=== PATIENT | female | born 1965 | race Caucasian/White ===

== ENCOUNTER 2019-07-03 15:10 | Emergency (ER) | payer MEDICAID, SELFPAY ==
[2019-07-03 15:16] VITALS: BP 119/74; PULSE 106; RESP 16; TEMP 36.4; O2SAT 96; BMI 26.9
--- NOTE | 2019-07-03 15:22 | XRR_ITS ---
PROCEDURE INFORMATION: Exam: XR Chest, 1 View Exam date and time: 07/03/2019 3:23 PM Age: 54 years old Clinical indication: Cough and shortness of breath; Additional info: Cough/congestion TECHNIQUE: Imaging protocol: XR of the chest Views: 1 view. COMPARISON: No relevant prior studies available. FINDINGS: Lungs: Mildly hyperaerated lungs consistent with deep inspiratory effort vs reactive airway disease vs mild COPD . Pleural space: Unremarkable. No pleural effusion. No pneumothorax. Heart/Mediastinum: Unremarkable. No cardiomegaly. Bones/joints: Unremarkable. XR/XR chest 1V portable [id number] IMPRESSION: Mildly hyperaerated lungs consistent with deep inspiratory effort vs reactive airway disease vs mild COPD .
[2019-07-03 15:59] VITALS: O2SAT 96
[2019-07-03 15:59] LABS: Basophils % 0.4 %; Eosinophils % 0.2 %; Hematocrit 44.4 % (37.0-47.0); Hemoglobin 14.6 g/dL (11.5-15.3); Lymphocytes # 1.4 10^3/uL (0.8-4.8); Lymphocytes % 14.8 %; Mean Corpuscular HGB Conc 32.9 g/dL (30.0-36.0); Mean Corpuscular Hemoglobin 31.9 pg (28.0-34.0); Mean Corpuscular Volume 96.9 fL (81-99); Mean Platelet Volume 9.5 fL (7.4-10.4); Monocytes # 0.7 10^3/uL (0.2-0.9); Monocytes % 7.2 %; Neutrophils # 7.2 10^3/uL (1.8-7.7); Neutrophils % 77.2 %; Nucleated Red Blood Cells % 0 %; Platelet Count 230 10^3/cmm (130-400); Red Blood Count 4.58 10^6/uL (4.1-5.3); Red Cell Distribution Width 13.7 % (12.1-15.1); White Blood Count 9.3 10^3/uL (4.0-10.0)
[2019-07-03 16:20] LABS: Troponin(5th) Baseline 6 ng/mL (0-10)
[2019-07-03 16:27] LABS: Rapid Strep A Test Negative (Negative)
--- NOTE | 2019-07-03 16:37 | W.ED.CHESTPA ---
HPI - Chest Pain General: Chief Complaint: Chest Pain Stated Complaint: cp Time Seen by Provider: 07/03/19 15:25 Source: patient Mode of arrival: ambulatory Limitations: no limitations History of Present Illness: HPI narrative: Prior OK several years ago. MD complaint: chest pain Pertinent past history: prior [place] Onset (ago): hour(s) (2) Timing of current episode: episodic Prior episodes: No Onset: after eating Pain location: left chest Pain radiation: none Severity: mild Quality: aching Relieving factors: nothing Exacerbating factors: nothing Associated symptoms: Reports no associated symptoms; Deny abdominal pain, dyspnea, fever(s), nausea or vomiting Treatment prior to arrival: none Review of Systems General: Reports: 10 or more systems reviewed and unremarkable except in HPI and below Const: Denies: fever, chills or body aches Eyes: Denies: change in vision or blurry vision ENMT: Reports: oral sores/lesions Card: Reports: chest pain Resp: Denies: shortness of breath, productive cough or non-productive cough GI: Denies: abdominal pain, nausea or vomiting : Denies: flank pain, difficulty urinating, painful urination, urinary frequency, urinary urgency or urinary hesitancy Musc: Denies: neck pain, back pain or extremity swelling Skin/Breast: Denies: rash, itching or redness Neuro: Denies: headache, numbness in extremities or weakness in extremities Endo: Denies: excessive urination, excessive thirst or tired all the time PFS ED PFSH: Social History Smoking and tobacco status: current every day smoker Physical Exam Const: COMMON NORMALS: no apparent distress, average body habitus, oriented x3, no limitations, healthy appearing, alert and well nourished HENMT: COMMON NORMALS: normocephalic, head/scalp atraumatic and moist oral mucous membranes HEAD & SCALP: normocephalic and atraumatic Neck/C-Spine: COMMON NORMALS: full ROM, supple, no meningeal signs, no JVD and no carotid bruits Chest: COMMONS NORMALS: inspection of chest normal and palpation of chest normal Resp: COMMON NORMALS: normal respiratory effort, no retractions, no use of accessory muscles, clear to auscultation bilaterally and percussion normal AUSCULTATION: clear to auscultation bilaterally PERCUSSION: percussion normal Cardio: COMMON NORMALS: no JVD, regular rate, regular rhythm, S1 normal heart sound, S2 normal heart sound, no gallops, no clicks, no murmurs, no rub and peripheral pulses 2+ throughout RATE: regular rate RHYTHM: regular rhythm HEART SOUNDS: S1 normal and S2 normal PERIPHERAL PULSES: pulses 2+ throughout GI: COMMON NORMALS: normal to inspection, nondistended, normoactive bowel sounds, soft to palpation, non-tender, no hepatosplenomegaly, no masses and no bruits PALPATION: Yes soft and Yes no hepatosplenomegaly : COMMON NORMALS: Yes no CVA tenderness BLADDER/KIDNEY EXAM: Yes no CVA tenderness Back/Pelvis: COMMON NORMALS: no CVA tenderness Extremity: COMMON NORMALS: normal to inspection, full ROM, normal capillary refill, no calf tenderness and no pedal edema Neuro: COMMON NORMALS: oriented x3 SENSORIUM/ORIENTATION: Yes alert MENINGEAL SIGNS: Yes no meningeal signs Skin: COMMON NORMALS: no rashes or lesions noted, no wounds, skin turgor normal, no jaundice, no petechiae and no mottling GENERAL SKIN EXAM: no rashes or lesions noted and turgor normal Course Vital Signs: Vital signs: Vital Signs Temperature 97.6 F 07/03/19 15:16 Pulse Rate 106 H 07/03/19 15:16 Respiratory Rate 16 07/03/19 15:16 Blood Pressure 119/74 07/03/19 15:16 Pulse Oximetry 96 07/03/19 15:59 MDM - Chest Pain MDM Narrative: Medical decision making narrative: Patient who presents to the emergency department with chest pain. During evaluation and while waiting on her test results the patient felt she could not wait any longer and so left AGAINST MEDICAL ADVICE. She understood the risks involved which include worsening of her condition and possible if she is having a myocardial infarction. Medical Records: Attestation: I reviewed the patient's medical records. Lab Data: Labs: Lab Results 07/03/19 07/03/19 07/03/19 Range/Units 15:47 15:47 15:47 WBC 9.3 (4.0-10.0) 10^3/ uL RBC 4.58 (4.1-5.3) 10^6/u L Hgb 14.6 (11.5-15.3) g/dL Hct 44.4 (37.0-47.0) % MCV 96.9 (81-99) fL MCH 31.9 (28.0-34.0) pg MCHC 32.9 (30.0-36.0) g/dL RDW 13.7 (12.1-15.1) % Plt Count 230 (130-400) 10^3/c mm MPV 9.5 (7.4-10.4) fL Neut % (Auto) 77.2 % Lymph % (Auto) 14.8 % Esmeralda % (Auto) 7.2 % Eos % (Auto) 0.2 % Baso % (Auto) 0.4 % Neut # (Auto) 7.2 (1.8-7.7) 10^3/u L Lymph # (Auto) 1.4 (0.8-4.8) 10^3/u L Esmeralda # (Auto) 0.7 (0.2-0.9) 10^3/u L Eos # (Auto) 0.0 (0.0-0.8) 10^3/u L Baso # (Auto) 0.0 (0.0-0.1) 10^3/u L Nucleated RBC % (a uto) 0 % Nucleated RBCs # 0.0 /100WBC Sodium 138 (136-145) mmol/L Potassium 3.9 (3.5-5.1) mmol/L Chloride 98 (98-107) mmol/L Carbon Dioxide 28 (22-29) mmol/L Anion Gap 15.9 (5-19) BUN 8 (6-20) mg/dL Creatinine 0.6 (0.5-0.9) mg/dL GFR Calculation 103.8 (90-130) mL/min Glucose 130 H (65-115) mg/dL Calculated Osmolal ity 284 L (285-295) mOsm/k g Calcium 10.2 (8.5-10.5) mg/dL Total Bilirubin 0.6 (0.15-1.2) mg/dL AST 37 H (0-32) U/L ALT 13 (0-33) U/L Alkaline Phosphata se 76 (35-105) IU/L Troponin T Baselin e 6 (0-10) ng/mL Total Protein 7.3 (6.6-8.7) g/dL Albumin 4.8 (3.5-5.2) g/dL Globulin 2.5 (1.3-4.6) g/dL Influenza Type A A g (Negative) Influenza Type B A g (Negative) Group A Strep Rapi d (Negative) 07/03/19 07/03/19 Range/Units 15:53 15:53 WBC (4.0-10.0) 10^3/ uL RBC (4.1-5.3) 10^6/u L Hgb (11.5-15.3) g/dL Hct (37.0-47.0) % MCV (81-99) fL MCH (28.0-34.0) pg MCHC (30.0-36.0) g/dL RDW (12.1-15.1) % Plt Count (130-400) 10^3/c mm MPV (7.4-10.4) fL Neut % (Auto) % Lymph % (Auto) % Esmeralda % (Auto) % Eos % (Auto) % Baso % (Auto) % Neut # (Auto) (1.8-7.7) 10^3/u L Lymph # (Auto) (0.8-4.8) 10^3/u L Esmeralda # (Auto) (0.2-0.9) 10^3/u L Eos # (Auto) (0.0-0.8) 10^3/u L Baso # (Auto) (0.0-0.1) 10^3/u L Nucleated RBC % (a uto) % Nucleated RBCs # /100WBC Sodium (136-145) mmol/L Potassium (3.5-5.1) mmol/L Chloride (98-107) mmol/L Carbon Dioxide (22-29) mmol/L Anion Gap (5-19) BUN (6-20) mg/dL Creatinine (0.5-0.9) mg/dL GFR Calculation (90-130) mL/min Glucose (65-115) mg/dL Calculated Osmolal ity (285-295) mOsm/k g Calcium (8.5-10.5) mg/dL Total Bilirubin (0.15-1.2) mg/dL AST (0-32) U/L ALT (0-33) U/L Alkaline Phosphata se (35-105) IU/L Troponin T Baselin e (0-10) ng/mL Total Protein (6.6-8.7) g/dL Albumin (3.5-5.2) g/dL Globulin (1.3-4.6) g/dL Influenza Type A A g Negative (Negative) Influenza Type B A g Negative (Negative) Group A Strep Rapi d Negative (Negative) Imaging Data^: CXR: Radiologist's impression: [address] [address] XRay Report Signed Patient: Ledya Mccurdy #: [id number] : 1965Acct#:[id number] Age/Sex: 54 / FADM Date: 07/03/19 [facility] Attending Dr: Ordering Provider/Ordering MD: Orly Cortez Date of Service: 07/03/19 Procedure(s): XR chest 1V portable [id number] Accession Number(s): [id number] Report Number: [id number] PROCEDURE INFORMATION: Exam: XR Chest, 1 View Exam date and time: 07/03/2019 3:23 PM Age: 54 years old Clinical indication: Cough and shortness of breath; Additional info: Cough/congestion TECHNIQUE: Imaging protocol: XR of the chest Views: 1 view. COMPARISON: No relevant prior studies available. FINDINGS: Lungs: Mildly hyperaerated lungs consistent with deep inspiratory effort vs reactive airway disease vs mild COPD . Pleural space: Unremarkable. No pleural effusion. No pneumothorax. Heart/Mediastinum: Unremarkable. No cardiomegaly. Bones/joints: Unremarkable. XR/XR chest 1V portable [id number] IMPRESSION: Mildly hyperaerated lungs consistent with deep inspiratory effort vs reactive airway disease vs mild COPD . Dictated By:Rogelio Rabago MD Signed By:Rogelio Rabago MDSigned Date/Time:07/03/191605 DD/ 1604 EKG Data^: EKG 1: Attestation: I personally reviewed and interpreted this EKG as follows: EKG interpretation date: 07/03/19 EKG interpretation time: 15:31 Prior EKG tracings: not available for review Interpretation: Sinus rhythm HR [address] changes Normal axis Discharge Plan Discharge Patient Disposition: Left Against Medical Advice Clinical Impression: Chest pain Qualifiers: Chest pain type: unspecified Qualified Code(s): R07.9 - Chest pain, unspecified Condition: Stable Coding Level of Care Code ED Donor Recruiter for g Fwd Exam Comprehensive
[2019-07-03 16:38] LABS: Influenza A by IFA Negative (Negative); Influenza B by IFA Negative (Negative)
[2019-07-03 16:49] LABS: Alanine Aminotransferase 13 U/L (0-33); Albumin Level 4.8 g/dL (3.5-5.2); Alkaline Phosphatase 76 IU/L (35-105); Anion Gap 15.9 (5-19); Aspartate Amino Transferase 37 U/L (0-32); Blood Urea Nitrogen 8 mg/dL (6-20); Calcium 10.2 mg/dL (8.5-10.5); Carbon Dioxide 28 mmol/L (22-29); Chloride 98 mmol/L (98-107); Globulin 2.5 g/dL (1.3-4.6); Glomerular Filtration Rate 103.8 mL/min (90-130); Glucose 130 mg/dL (65-115); Osmolality Calculated 284 mOsm/kg (285-295); Potassium 3.9 mmol/L (3.5-5.1); Sodium 138 mmol/L (136-145); Total Bilirubin 0.6 mg/dL (0.15-1.2); Total Protein 7.3 g/dL (6.6-8.7)
== END 2019-07-03 17:04 | disposition left against medical advice (07) ==
PROVIDERS: Physician Assistant; Emergency Provider Family Medicine
DX: R07.9 Chest pain, unspecified (principal); I25.2 Old myocardial infarction; F17.200 Nicotine dependence, unspecified, uncomplicated; Z53.29 Procedure and treatment not carried out because of patient's decision for other reasons
CPT/HCPCS: 12345; 71045; 80053; 84484; 85025; 87081; 87804; 87880; 99283; A9270

== ENCOUNTER → 2020-12-13 10:33 | Outpatient (BNVA) | payer MEDICAID, SELFPAY | PROVIDERS: Visit Provider Registered Nurse Neonatal Intensive Care | DX: R10.9 Unspecified abdominal pain (principal) | CPT/HCPCS: 81000 ==

== ENCOUNTER 2022-04-29 12:52 | Outpatient (CLI) | payer MEDICAID, SELFPAY ==
--- NOTE | 2022-04-29 13:14 | MM_ITS ---
WS: [id number] LEFT 3D TOMOSYNTHESIS DIGITAL MAMMOGRAPHY WITH CAD CLINICAL INFORMATION: ABNORMAL MAMMO HISTORY: Outside examination request additional views COMPARISON: Outside examination February 22, 2022 TECHNIQUE: 3 views of the left breast were obtained. FINDINGS: Scattered fibroglandular densities of the left breast. Spot magnification views of the previously loco cribed calcifications on the outside mammogram near the 11:00 position. Again seen are tiny clustered calcifications near the 11:00 position. These are not well seen on the ML view, some of which may re present milk of calcium. These are indeterminate and Recommend 6 month follow-up LEFT breast diagnost ic mammography with spot magnification views to assess for change. MM/[place] [id number] IMPRESSION: BI-RADS: 3-Probably Benign FOLLOW UP: 6 Month Follow-up Recommend 6 month follow-up LEFT breast diagnostic mammography with spot magnif ication views the 11:00 calcifications.
== END 2022-04-29 12:53 | disposition home or self-care (01) ==
LOC: RAD 12:58
PROVIDERS: Visit Provider Registered Nurse
DX: R92.8 Other abnormal and inconclusive findings on diagnostic imaging of breast (principal); R92.1 Mammographic calcification found on diagnostic imaging of breast
CPT/HCPCS: 77061; G0279

== ENCOUNTER → 2022-05-22 14:06 | Outpatient (BNVA) | payer MEDICAID, SELFPAY | PROVIDERS: Visit Provider Otolaryngology | DX: B36.9 Superficial mycosis, unspecified (principal); H62.41 Otitis externa in other diseases classified elsewhere, right ear; J32.9 Chronic sinusitis, unspecified; M26.629 Arthralgia of temporomandibular joint, unspecified side; F17.210 Nicotine dependence, cigarettes, uncomplicated | CPT/HCPCS: 69210; 99203 ==

== ENCOUNTER → 2022-05-29 10:05 | Outpatient (BNVA) | payer MEDICAID, SELFPAY | PROVIDERS: Visit Provider Otolaryngology | DX: B36.9 Superficial mycosis, unspecified (principal); H62.41 Otitis externa in other diseases classified elsewhere, right ear; J34.2 Deviated nasal septum; H72.01 Central perforation of tympanic membrane, right ear | CPT/HCPCS: 99213 ==

== ENCOUNTER → 2022-07-29 11:30 | Outpatient (BNVA) | payer MEDICAID, SELFPAY | PROVIDERS: Visit Provider Otolaryngology | DX: H72.01 Central perforation of tympanic membrane, right ear (principal); J34.2 Deviated nasal septum | CPT/HCPCS: 99213 ==

== ENCOUNTER → 2022-09-02 11:48 | Outpatient (BNVA) | payer MEDICAID, SELFPAY | PROVIDERS: Visit Provider Otolaryngology | DX: J06.9 Acute upper respiratory infection, unspecified (principal); M26.609 Unspecified temporomandibular joint disorder, unspecified side | CPT/HCPCS: 99213 ==

== ENCOUNTER 2022-10-28 09:55 | Outpatient (CLI) | payer MEDICAID, SELFPAY ==
--- NOTE | 2022-10-28 10:26 | MM_ITS ---
WS: [id number] LEFT 3D TOMOSYNTHESIS DIGITAL MAMMOGRAPHY WITH CAD CLINICAL INFORMATION: 6MFU CALCS HISTORY: Six-month follow-up calcifications. LEFT breast pain and soreness. COMPARISON: April 29, 2022, February 22, 2022 TECHNIQUE: 3 views of the left breast were obtained. FINDINGS: The left breast is composed of heterogeneous fibroglandular density tissue, which can limit the detec tion of small underlying mass lesions. Spot magnification views of the previously described calcifications in the 11:00 position. Stable fabio nt amorphous and clustered calcifications in this area not significantly changed compared to previous . Recommend additional six-month follow-up with spot magnification views to confirm stability. No oth er significant changes compared to previous. MM/[place] [id number] IMPRESSION: BI-RADS: 3-Probably Benign FOLLOW UP: 6 Month Follow-up Recommend 6 month follow-up LEFT breast diagnostic mammography with spot magnif ication views of the calcifications.
== END 2022-10-28 09:56 | disposition home or self-care (01) ==
PROVIDERS: Visit Provider Registered Nurse
DX: R93.89 Abnormal findings on diagnostic imaging of other specified body structures (principal); R92.1 Mammographic calcification found on diagnostic imaging of breast; N64.4 Mastodynia
CPT/HCPCS: 77061; G0279

== ENCOUNTER 2023-05-26 12:52 | Outpatient (CLI) | payer MEDICAID, SELFPAY ==
--- NOTE | 2023-05-26 13:16 | MM_ITS ---
WS: [email or web address] BILATERAL 3D TOMOSYNTHESIS DIGITAL DIAGNOSTIC MAMMOGRAPHY WITH CAD CLINICAL INFORMATION: 6 MONTH FOLLOW UP/ABN L BREAST HISTORY: 6-month follow-up calcifications. COMPARISON: 02/22/2022 TECHNIQUE: Bilateral CC, MLO, and ML views. FINDINGS: The breasts are composed of heterogeneous fibroglandular density, which can limit the detection of sm all underlying mass lesions. Spot magnification views of the previously described calcifications in the 11 o'clock position LEFT b reast are stable in appearance. These have a faint amorphous appearance and are stable compared to pr evious. These are stable since 04/29/2022. New clustered punctate calcifications posterior depth upper outer RIGHT breast. Spot magnification vi ews demonstrate clustered heterogeneous punctate calcifications. Recommend further evaluation with st ereotactic guided biopsy. IMPRESSION: MM/[place] [id number] BI-RADS: 4-Suspicious Finding-Biopsy Should Be Considered FOLLOW UP: Stereotactic Biopsy Recommended Recommend stereotactic guided biopsy of the new heterogeneous RIGHT breast calc ifications. LEFT breast calcifications are stable in appearance. Recommend additional 6-mon th follow-up of the LEFT breast calcifications.
== END 2023-05-26 12:53 | disposition home or self-care (01) ==
LOC: RAD 12:52
PROVIDERS: Visit Provider Nurse Practitioner Family
DX: R92.1 Mammographic calcification found on diagnostic imaging of breast (principal); R92.323 Mammographic fibroglandular density, bilateral breasts; R92.8 Other abnormal and inconclusive findings on diagnostic imaging of breast
CPT/HCPCS: 77062; G0279

== ENCOUNTER 2023-06-17 11:30 | Outpatient (CLI) | payer MEDICAID, SELFPAY ==
--- NOTE | 2023-06-17 13:07 | MM_ITS ---
WS: [id number] STEREOTACTIC RIGHT BREAST BIOPSY WITH VACUUM ASSISTANCE HISTORY: ABNORMAL MAMMO CALCS COMPARISON: 05/26/2023, 02/22/2022 Procedure, risks and complications were explained to the patient. Medications and prior radiographs a re reviewed. RIGHT breast calcifications are located. Calcifications localize to the upper outer quadrant. Calcifi cations are targeted in the craniocaudal projection. The skin is cleansed with ChloraPrep and anesthe tized with 1% buffered lidocaine. Deeper soft tissues anesthetized with a combination of lidocaine an d epinephrine. Small dermatome is made. Needle advanced into the RIGHT breast. Stereotactic imaging r eveals appropriate positioning adjacent calcifications. Multiple vacuum-assisted core biopsies are ob tained. No complications were encountered. Post biopsy specimen radiograph reveals numerous calcifications. Biopsy clip is placed in the cavity. Post imaging reveals good placement of the clip. No migration. Pressures held for approximately 15 minutes. No bleeding. Dressing applied. Patient discharged with n o complications. There is no bleeding. With any questions or complications patient is to return. IMPRESSION: 1. Uncomplicated RIGHT breast stereotactic biopsy. 2. Specimen contains numerous calcifications. MM/[place] [id number] Pathology: Ductal carcinoma in situ, comedo type, intermediate grade. 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 No invasive malignancy. Breast prognostic p rofile is ordered and pending. This will be reported separately. RECOMMENDATION: Follow-up with primary care physician, oncology and breast surg tiny.
--- NOTE | 2023-06-17 13:08 | MM_ITS ---
WS: [id number] STEREOTACTIC RIGHT BREAST BIOPSY WITH VACUUM ASSISTANCE HISTORY: ABNORMAL MAMMO CALCS COMPARISON: 05/26/2023, 02/22/2022 Procedure, risks and complications were explained to the patient. Medications and prior radiographs a re reviewed. RIGHT breast calcifications are located. Calcifications localize to the upper outer quadrant. Calcifi cations are targeted in the craniocaudal projection. The skin is cleansed with ChloraPrep and anesthe tized with 1% buffered lidocaine. Deeper soft tissues anesthetized with a combination of lidocaine an d epinephrine. Small dermatome is made. Needle advanced into the RIGHT breast. Stereotactic imaging r eveals appropriate positioning adjacent calcifications. Multiple vacuum-assisted core biopsies are ob tained. No complications were encountered. Post biopsy specimen radiograph reveals numerous calcifications. Biopsy clip is placed in the cavity. Post imaging reveals good placement of the clip. No migration. Pressures held for approximately 15 minutes. No bleeding. Dressing applied. Patient discharged with n o complications. There is no bleeding. With any questions or complications patient is to return. IMPRESSION: 1. Uncomplicated RIGHT breast stereotactic biopsy. 2. Specimen contains numerous calcifications. MM/[place] [id number] Pathology: Ductal carcinoma in situ, comedo type, intermediate grade. 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 No invasive malignancy. Breast prognostic p rofile is ordered and pending. This will be reported separately. RECOMMENDATION: Follow-up with primary care physician, oncology and breast surg tiny.
--- NOTE | 2023-06-17 13:09 | MM_ITS ---
WS: [email or web address] STEREOTACTIC RIGHT BREAST BIOPSY WITH VACUUM ASSISTANCE HISTORY: ABNORMAL MAMMO CALCS COMPARISON: 05/26/2023, 02/22/2022 Procedure, risks and complications were explained to the patient. Medications and prior radiographs a re reviewed. RIGHT breast calcifications are located. Calcifications localize to the upper outer quadrant. Calcifi cations are targeted in the craniocaudal projection. The skin is cleansed with ChloraPrep and anesthe tized with 1% buffered lidocaine. Deeper soft tissues anesthetized with a combination of lidocaine an d epinephrine. Small dermatome is made. Needle advanced into the RIGHT breast. Stereotactic imaging r eveals appropriate positioning adjacent calcifications. Multiple vacuum-assisted core biopsies are ob tained. No complications were encountered. Post biopsy specimen radiograph reveals numerous calcifications. Biopsy clip is placed in the cavity. Post imaging reveals good placement of the clip. No migration. Pressures held for approximately 15 minutes. No bleeding. Dressing applied. Patient discharged with n o complications. There is no bleeding. With any questions or complications patient is to return. IMPRESSION: 1. Uncomplicated RIGHT breast stereotactic biopsy. 2. Specimen contains numerous calcifications. MM/MM surgical specimen RT Pathology: Ductal carcinoma in situ, comedo type, intermediate grade. 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 No invasive malignancy. Breast prognostic p rofile is ordered and pending. This will be reported separately. RECOMMENDATION: Follow-up with primary care physician, oncology and breast surg tiny.
[2023-07-03 13:55] LABS: Breast Profile ER,PR,HER2,Ki-6 See Report
== END 2023-06-17 11:31 | disposition home or self-care (01) ==
LOC: RAD 11:30
PROVIDERS: Visit Provider Nurse Practitioner Family
DX: R92.1 Mammographic calcification found on diagnostic imaging of breast (principal)
CPT/HCPCS: 19081; 77065; 88305; 88361; 88374

== ENCOUNTER 2023-07-03 07:26 | Oncology outpatient (recurring) (ONCR) | payer MEDICAID, SELFPAY ==
[2023-07-03 09:15] LABS: Basophils # 0.1 10^3/uL (0.0-0.1); Basophils % 0.6 %; Eosinophils # 0.1 10^3/uL (0.0-0.8); Eosinophils % 1.4 %; Hematocrit 38.5 % (36-47); Lymphocytes % 22.9 %; Mean Corpuscular HGB Conc 33.5 g/dL (30-55); Mean Corpuscular Hemoglobin 32.2 pg (27-33); Mean Platelet Volume 8.9 fL (7.4-10.4); Monocytes # 0.6 10^3/uL (0.2-0.9); Monocytes % 7.2 %; Neutrophils # 5.91 10^3/uL (1.8-7.7); Neutrophils % 67.7 %; Nucleated Red Blood Cells % 0 %; Platelet Count 231 10^3/cmm (157-399); Red Blood Count 4.01 10^6/uL (3.85-5.65); Red Cell Distribution Width 12.2 % (12.1-15.1); White Blood Count 8.73 10^3/uL (3.29-11.43)
[2023-07-03 09:35] LABS: Alanine Aminotransferase 13 U/L (0-33); Albumin Level 4.2 g/dL (3.5-5.2); Alkaline Phosphatase 79 U/L (35-105); Aspartate Amino Transferase 20 U/L (0-32); Blood Urea Nitrogen 11 mg/dL (6-20); Carbon Dioxide 26 mmol/L (22-29); Chloride 100 mmol/L (98-107); Creatinine Clr Calc Pharmacy 97.4655; Globulin 2.6 g/dL (1.3-4.6); Glomerular Filtration Rate 102.3 mL/min (90-130); Glucose 93 mg/dL (65-115); Osmolality Calculated 281 mOsm/kg (285-295); Sodium 136 mmol/L (136-145); Total Bilirubin 0.3 mg/dL (0.15-1.2); Total Protein 6.8 g/dL (6.6-8.7)
[2023-07-03 10:06] LABS: Hepatitis A Antibody IgM Non-Reactive (Nonreactive); Hepatitis B Core AB, Total Non-Reactive (Nonreactive); Hepatitis B Surface AB 46.1 (11.5-1000); Hepatitis B Surface Antigen Non-Reactive (Nonreactive); Hepatitis C Virus Antibody Non-Reactive (Nonreactive)
== END 2023-07-22 23:59 | disposition home or self-care (01) ==
PROVIDERS: Visit Provider Internal Medicine
DX: D05.11 Intraductal carcinoma in situ of right breast (principal); Z79.899 Other long term (current) drug therapy
CPT/HCPCS: 36415; 80053; 85025; 86705; 86706; 86709; 86803; 87340; 99205

== ENCOUNTER 2023-09-11 12:00 | Oncology outpatient (recurring) (ONCR) | payer MEDICAID, SELFPAY ==
[2023-09-11 12:26] LABS: Basophils # 0.1 10^3/uL (0.0-0.1); Basophils % 0.9 %; Eosinophils # 0.3 10^3/uL (0.0-0.8); Eosinophils % 4.1 %; Hematocrit 37.3 % (36-47); Lymphocytes # 1.9 10^3/uL (0.8-4.8); Lymphocytes % 28.2 %; Mean Corpuscular HGB Conc 34.3 g/dL (30-55); Mean Corpuscular Hemoglobin 32.2 pg (27-33); Mean Platelet Volume 8.9 fL (7.4-10.4); Monocytes # 0.5 10^3/uL (0.2-0.9); Monocytes % 7.6 %; Neutrophils # 3.87 10^3/uL (1.8-7.7); Nucleated Red Blood Cells % 0 %; Platelet Count 280 10^3/cmm (157-399); Red Blood Count 3.97 10^6/uL (3.85-5.65); Red Cell Distribution Width 11.9 % (12.1-15.1); White Blood Count 6.56 10^3/uL (3.29-11.43)
[2023-09-11 12:47] LABS: Alanine Aminotransferase 8 U/L (0-33); Albumin Level 4.1 g/dL (3.5-5.2); Alkaline Phosphatase 84 U/L (35-105); Anion Gap 14.1 (5-19); Aspartate Amino Transferase 23 U/L (0-32); Blood Urea Nitrogen 8 mg/dL (6-20); Calcium 8.9 mg/dL (8.5-10.5); Carbon Dioxide 26 mmol/L (22-29); Chloride 101 mmol/L (98-107); Creatinine Clr Calc Pharmacy 81.4195; Globulin 2.5 g/dL (1.3-4.6); Glomerular Filtration Rate 85.6 mL/min (90-130); Glucose 95 mg/dL (65-115); Osmolality Calculated 282 mOsm/kg (285-295); Potassium 4.1 mmol/L (3.5-5.1); Sodium 137 mmol/L (136-145); Total Bilirubin 0.2 mg/dL (0.15-1.2); Total Protein 6.6 g/dL (6.6-8.7)
== END 2023-09-21 23:59 | disposition home or self-care (01) ==
PROVIDERS: Visit Provider Internal Medicine
DX: D05.11 Intraductal carcinoma in situ of right breast (principal); Z79.899 Other long term (current) drug therapy; Z53.9 Procedure and treatment not carried out, unspecified reason
CPT/HCPCS: 36415; 80053; 85025; 99213

== ENCOUNTER 2023-12-01 10:29 | Oncology outpatient (recurring) (ONCR) | payer MEDICAID, SELFPAY ==
[2023-12-01 11:15] LABS: Alanine Aminotransferase 16 U/L (0-33); Albumin Level 3.7 g/dL (3.5-5.2); Alkaline Phosphatase 92 U/L (35-105); Anion Gap 13.6 (5-19); Aspartate Amino Transferase 24 U/L (0-32); Blood Urea Nitrogen 11 mg/dL (6-20); Calcium 8.7 mg/dL (8.5-10.5); Carbon Dioxide 28 mmol/L (22-29); Chloride 98 mmol/L (98-107); Globulin 2.6 g/dL (1.3-4.6); Glomerular Filtration Rate 102.3 mL/min (90-130); Glucose 101 mg/dL (65-115); Osmolality Calculated 280 mOsm/kg (285-295); Potassium 4.6 mmol/L (3.5-5.1); Sodium 135 mmol/L (136-145); Total Bilirubin 0.2 mg/dL (0.15-1.2); Total Protein 6.3 g/dL (6.6-8.7)
[2023-12-01 11:53] LABS: Basophils # 0.1 10^3/uL (0.0-0.1); Basophils % 0.8 %; Eosinophils # 0.3 10^3/uL (0.0-0.8); Eosinophils % 2.8 %; Hematocrit 36.8 % (36-47); Lymphocytes % 22.2 %; Mean Corpuscular HGB Conc 33.4 g/dL (30-55); Mean Corpuscular Hemoglobin 31.2 pg (27-33); Mean Corpuscular Volume 93.4 fl (85-98); Mean Platelet Volume 9.2 fL (7.4-10.4); Monocytes # 0.6 10^3/uL (0.2-0.9); Monocytes % 7.2 %; Neutrophils # 5.95 10^3/uL (1.8-7.7); Neutrophils % 66.7 %; Nucleated Red Blood Cells % 0 %; Platelet Count 293 10^3/cmm (157-399); Red Blood Count 3.94 10^6/uL (3.85-5.65); Red Cell Distribution Width 12.8 % (12.1-15.1); White Blood Count 8.92 10^3/uL (3.29-11.43)
== END 2023-12-22 23:59 | disposition home or self-care (01) ==
PROVIDERS: Internal Medicine Medical Oncology; Visit Provider Internal Medicine
DX: D05.11 Intraductal carcinoma in situ of right breast (principal); Z79.899 Other long term (current) drug therapy
CPT/HCPCS: 36415; 80053; 82670; 83001; 83002; 85025; 99205

== ENCOUNTER 2024-06-14 12:53 | Oncology outpatient (recurring) (ONCR) | payer MEDICAID, SELFPAY | END 2024-06-21 23:59 | disposition home or self-care (01) | PROVIDERS: Visit Provider Internal Medicine Medical Oncology | DX: Z08 Encounter for follow-up examination after completed treatment for malignant neoplasm (principal); Z85.3 Personal history of malignant neoplasm of breast; F17.210 Nicotine dependence, cigarettes, uncomplicated; Z90.13 Acquired absence of bilateral breasts and nipples | CPT/HCPCS: 80061; 83036; 99214 ==

== ENCOUNTER 2024-08-04 11:19 | Inpatient (IN) | payer MEDICAID, SELFPAY ==
[2024-06-15 13:22] VITALS: BP 126/82; BMI 24.2
[2024-08-04 11:21] VITALS: TEMP 36.6
[2024-08-04 12:10] LABS: Basophils % 0.7 %; Eosinophils # 0.2 10^3/uL (0.0-0.8); Hematocrit 40.4 % (36-47); Lymphocytes # 1.7 10^3/uL (0.8-4.8); Lymphocytes % 29.2 %; Mean Corpuscular HGB Conc 33.7 g/dL (30-55); Mean Corpuscular Hemoglobin 31.8 pg (27-33); Mean Corpuscular Volume 94.4 fl (85-98); Mean Platelet Volume 8.9 fL (7.4-10.4); Monocytes # 0.4 10^3/uL (0.2-0.9); Monocytes % 7.5 %; Neutrophils # 3.42 10^3/uL (1.8-7.7); Neutrophils % 59.4 %; Nucleated Red Blood Cells % 0 %; Platelet Count 244 10^3/cmm (157-399); Red Blood Count 4.28 10^6/uL (3.85-5.65); Red Cell Distribution Width 12.3 % (12.1-15.1); White Blood Count 5.75 10^3/uL (3.29-11.43)
[2024-08-04 12:32] LABS: Alanine Aminotransferase 8 U/L (0-33); Albumin Level 4.1 g/dL (3.5-5.2); Alkaline Phosphatase 97 U/L (35-105); Anion Gap 13.4 (5-19); Aspartate Amino Transferase 15 U/L (0-32); Blood Urea Nitrogen 12 mg/dL (8-23); Calcium 9.3 mg/dL (8.5-10.5); Carbon Dioxide 27 mmol/L (22-29); Chloride 102 mmol/L (98-107); Creatinine Clr Calc Pharmacy 72.0762; Globulin 2.9 g/dL (1.3-4.6); Glomerular Filtration Rate 73.2 mL/min (90-130); Glucose 93 mg/dL (65-115); Osmolality Calculated 285 mOsm/kg (285-295); Potassium 4.4 mmol/L (3.5-5.1); Sodium 138 mmol/L (136-145); Thyroid Stimulating Hormone 1.61 uIU/mL (0.27-4.20); Total Bilirubin 0.2 mg/dL (0.15-1.2)
[2024-08-04 12:48] LABS: Acetaminophen < 5.0 ug/mL (10-30); Salicylate < 0.3 mg/dL (3-10)
[2024-08-04] MEDS: nicotine 21 mg Patch 1 PATCH TRANSDERMA (12:52)
--- NOTE | 2024-08-04 12:55 | PC.PHAR ---
Pt states she is late filling some of her medications due to her doctor retiring.
--- NOTE | 2024-08-04 13:12 | PC.NURSE ---
96 hour hold rights read to patient in ER 8. Patient wanted to know who put her in the ER and demanded to talk to the ammunition assembly i laborer. Product Marketing Consultant informed patient that it was not possible to speak to the ammunition assembly i laborer, but she could speak to the doctor if she would like. Patient asked manual writer to read her exactly what was written on that paper as she could not read it without glasses and manual writer told patient she just read the entire thing. Patient verbalized understanding, folded up paper and wanted it put with her personal belongings.
--- NOTE | 2024-08-04 14:03 | W.ED.PSYCHS ---
HPI - Psych General: Chief Complaint: Psychiatric Symptoms Stated Complaint: SI Time Seen by Provider: 08/04/24 11:22 History of Present Illness: This patient is a 59-year-old white female who was brought in by police with a judges order, 96-hour hold. There was an affidavit written by a counselor who had a discussion with the patient on Friday, August 02. Per the affidavit the patient made a homicidal statement regarding her ex-. Patient states today the police just showed up at her house and brought her in. She was not sure why. She states she is not homicidal or suicidal. She states she has never tried to hurt herself or anyone else. She denies chronic medical problems however she states she does take sertraline. Related Data Home Medications ?Medication ?Instructions ?Recorded ?Confirmed loratadine 10 mg tablet 10 mg PO DAILY 12/13/20 08/04/24 gabapentin 300 mg capsule 300 mg PO QID 07/03/23 08/04/24 rizatriptan 10 mg tablet See Rx Instructions .Route .COMPLEX 07/03/23 08/04/24 albuterol sulfate 90 mcg/actuation 2 puff inhalation Q6H PRN 08/04/24 08/04/24 aerosol inhaler (Ventolin HFA) Shortness Of Breath ferrous sulfate 325 mg (65 mg 325 mg PO DAILY 08/04/24 08/04/24 iron) tablet (FeroSul) fluticasone 100 mcg-salmeterol 50 1 inh inhalation BID 08/04/24 08/04/24 mcg/dose blistr powdr for inhalation (Advair Diskus) thyroid (pork) 60 mg tablet (GLASSWARE FINISHER 60 mg PO DAILY 08/04/24 08/04/24 Thyroid) Previous Rx's ?Medication ?Instructions ?Recorded fluticasone propionate 50 2 spray intranasal DAILY PRN nasal 05/22/22 mcg/actuation nasal congestion 6 months #16 grams spray,suspension Allergies Allergy/AdvReac Type Severity Reaction Status Date / Time morphine Allergy Unknown ADR-Halluci Verified 06/14/24 12:59 nating Sulfa (Sulfonamide Allergy Unknown ALGY-Difficulty Verified 06/14/24 12:59 Antibiotics) Breathing rifampin Allergy ADR-Vomitin Verified 06/14/24 12:59 g sulfamethoxazole (From Allergy ALGY-Swell Verified 06/14/24 12:59 Bactrim) Lip/Tongue/Throat trimethoprim (From Bactrim) Allergy ALGY-Swell Verified 06/14/24 12:59 Lip/Tongue/Throat sulfa shampoo Allergy Unknown Unknown Uncoded 06/14/24 12:59 Review of Systems General: Reports: 10 or more systems reviewed and unremarkable except in HPI and below PFSH ED PFSH: Medical History (Updated 08/04/24 @ 14:01 by Farzad Banuelos MD) Psychiatric care Allergic rhinitis Depression Iron deficiency B12 deficiency Hypothyroidism Fibromyalgia Ductal carcinoma in situ of right breast Surgical History History of endometrial ablation Ablation procedure for cervical or endometrial cancer History of bilateral mastectomy (11/10/23) Bilateral mastectomy with right axillary sentinel lymph node biopsy and with immediate reconstruction History of spinal surgery Neck fusion with subsequent removal of hardware History of tubal ligation Family History Family/Other Breast cancer Social History Smoking and tobacco/nicotine status: current every day tobacco/nicotine user (1/2 PPD) cigarettes Packs smoked per day: 0.5 Years cigarettes smoked: 18 Quit status (tobacco/nicotine): considering quitting Alcohol intake: current Alcohol intake frequency: 0-2 Drinks per Day Substance/Drug Use: current Adopted: No Caregiver/support person: No Lives independently: Yes Housing: Apartment Marital status: Number of children: 5 Number of grandchildren: 4 Highest education level completed: Some College, No Degree service: No Current occupational status: disabled Pets and animals: Yes Pets & animals: dog(s) Leisure activites: other Leisure activities details: river Sexually active: Yes Do you think of yourself as: Straight/Heterosexual Current gender identity: Female Ratna/Taoist: None Special ratna needs: No Agree to transfusion: Yes Physical Exam Const: COMMON NORMALS: no acute distress, patient oriented x3 and no limitations GENERAL APPEARANCE: cooperative and comfortable HENMT: COMMON NORMALS: normocephalic, atraumatic, Normal nasal mucous membranes and turbinates present, moist oral mucous membranes and oropharynx normal HEAD & SCALP: normal to inspection, normocephalic and atraumatic FACE & SINUS: normal facial exam NOSE: Normal nasal mucous membranes and turbinates present Eye: COMMON NORMALS: Equal, round and reactive pupils present, EOMs intact bilaterally and conjunctivae normal GENERAL EYE: appearance normal, both eyes and all related structures CONJUNCTIVA: Yes conjunctivae normal PUPIL: Yes Equal, round and reactive pupils present Neck/C-Spine: COMMON NORMALS: supple and no JVD Chest: COMMONS NORMALS: normal inspection of the chest Resp: COMMON NORMALS: normal respiratory effort and clear to auscultation bilaterally AUSCULTATION: clear to auscultation bilaterally Cardio: COMMON NORMALS: no JVD, regular rate, regular rhythm, No gallops present (Cardio), No murmurs present (Cardio) and No rub (Cardio) RATE: regular rate RHYTHM: regular rhythm GI: COMMON NORMALS: Normal to inspection, nondistended, normoactive bowel sounds present, Soft to palpation and non-tender AUSCULTATION: Yes normoactive bowel sounds PALPATION: Yes Soft to palpation : COMMON NORMALS: Yes no CVA tenderness BLADDER/KIDNEY EXAM: Yes no CVA tenderness Back/Pelvis: COMMON NORMALS: no CVA tenderness and thoracic and lumbar spine normal to inspection Extremity: COMMON NORMALS: normal to inspection Neuro: COMMON NORMALS: patient oriented x3 and CN's II-XII intact bilaterally Psych: COMMON NORMALS: mental status grossly normal, Normal thought process present and cooperative THOUGHT PROCESS: Normal thought process present Skin: COMMON NORMALS: no rashes or lesions noted, turgor normal and no jaundice GENERAL SKIN EXAM: no rashes or lesions noted and turgor normal Course Vital Signs: Vital signs: Vital Signs Temperature 97.9 F 08/04/24 11:21 MDM - Psych Medical Decision Making CBC and CMP were normal. TSH 1.6. Talk screen was negative. Urinalysis and urine drug screen is pending. I discussed this case with Dr. Segundo, psychiatrist. He did accept the patient to the Neuropsych Unit. Patient will be sent to the neuropsych unit as soon as the bed is available. She is stable. Lab Data 08/04/24 11:55 08/04/24 11:55 Laboratory Results WBC 5.75 10^3/uL (3.29-11.43) 08/04/24 11:55 RBC 4.28 10^6/uL (3.85-5.65) 08/04/24 11:55 Hgb 13.60 g/dL (11.27-16.99) 08/04/24 11:55 Hct 40.4 % (36-47) 08/04/24 11:55 MCV 94.4 fl (85-98) 08/04/24 11:55 MCH 31.8 pg (27-33) 08/04/24 11:55 MCHC 33.7 g/dL (30-55) 08/04/24 11:55 RDW 12.3 % (12.1-15.1) 08/04/24 11:55 Plt Count 244 10^3/cmm (157-399) 08/04/24 11:55 MPV 8.9 fL (7.4-10.4) 08/04/24 11:55 Neut % (Auto) 59.4 % 08/04/24 11:55 Lymph % (Auto) 29.2 % 08/04/24 11:55 Custer % (Auto) 7.5 % 08/04/24 11:55 Eos % (Auto) 3.0 % 08/04/24 11:55 Baso % (Auto) 0.7 % 08/04/24 11:55 Neut # (Auto) 3.42 10^3/uL (1.8-7.7) 08/04/24 11:55 Lymph # (Auto) 1.7 10^3/uL (0.8-4.8) 08/04/24 11:55 Custer # (Auto) 0.4 10^3/uL (0.2-0.9) 08/04/24 11:55 Eos # (Auto) 0.2 10^3/uL (0.0-0.8) 08/04/24 11:55 Baso # (Auto) 0.0 10^3/uL (0.0-0.1) 08/04/24 11:55 Nucleated RBC % (auto) 0 % 08/04/24 11:55 Nucleated RBCs # 0.0 /100WBC 08/04/24 11:55 Sodium 138 mmol/L (136-145) 08/04/24 11:55 Potassium 4.4 mmol/L (3.5-5.1) 08/04/24 11:55 Chloride 102 mmol/L (98-107) 08/04/24 11:55 Carbon Dioxide 27 mmol/L (22-29) 08/04/24 11:55 Anion Gap 13.4 (5-19) 08/04/24 11:55 BUN 12 mg/dL (8-23) 08/04/24 11:55 Creatinine 0.8 mg/dL (0.5-0.9) 08/04/24 11:55 GFR Calculation 73.2 mL/min (90-130) L 08/04/24 11:55 Glucose 93 mg/dL (65-115) 08/04/24 11:55 Calculated Osmolality 285 mOsm/kg (285-295) 08/04/24 11:55 Calcium 9.3 mg/dL (8.5-10.5) 08/04/24 11:55 Total Bilirubin 0.2 mg/dL (0.15-1.2) 08/04/24 11:55 AST 15 U/L (0-32) 08/04/24 11:55 ALT 8 U/L (0-33) 08/04/24 11:55 Alkaline Phosphatase 97 U/L (35-105) 08/04/24 11:55 Total Protein 7.0 g/dL (6.6-8.7) 08/04/24 11:55 Albumin 4.1 g/dL (3.5-5.2) 08/04/24 11:55 Globulin 2.9 g/dL (1.3-4.6) 08/04/24 11:55 TSH 1.61 uIU/mL (0.27-4.20) 08/04/24 11:55 Salicylates < 0.3 mg/dL (3-10) L 08/04/24 11:55 Acetaminophen < 5.0 ug/mL (10-30) L 08/04/24 11:55 No radiology studies performed this visit Discharge Plan Discharge Patient Disposition: Admitted As Inpatient Clinical Impression: Homicidal ideation Condition: Stable Coding Level of Care Code ED Civil Division Commander Deputy Sheriff for Tiffanie Prieto
[2024-08-04 14:48] LABS: Alcohol Level < 10 mg/dL (0-10)
[2024-08-04 15:02] VITALS: BP 104/66; PULSE 83; RESP 16; O2SAT 99
[2024-08-04 16:19] VITALS: BP 113/66; PULSE 102; RESP 16; TEMP 36.5; O2SAT 98
[2024-08-04] MEDS: nicotine 2 mg Gum BUCCAL (17:43)
[2024-08-04 19:37] VITALS: BP 101/58; PULSE 78; RESP 15; TEMP 37.1; O2SAT 100
[2024-08-04] MEDS: gabapentin 300 mg Capsule PO (20:23)
[2024-08-05] MEDS: ibuprofen 600 mg Tablet PO (00:10)
--- NOTE | 2024-08-05 04:06 | PC.NURSE ---
PATIENT STATES PAIN IS BETTER
[2024-08-05 04:42] VITALS: BP 102/67; PULSE 90; RESP 16; TEMP 36.8; O2SAT 94
[2024-08-05] MEDS: nicotine 2 mg Gum BUCCAL ×3 (08:12→17:53)
[2024-08-05] MEDS: loratadine 10 mg Tablet PO (08:12)
[2024-08-05] MEDS: gabapentin 300 mg Capsule PO ×4 (08:12→20:41)
[2024-08-05] MEDS: thyroid 60 mg Tablet PO (08:12)
[2024-08-05] MEDS: ferrous sulfate EC 325 mg Tablet PO (08:12)
[2024-08-05] MEDS: fluticasone nasal spray 16gm Btl 2 SPRAY INTRANASAL (08:17)
[2024-08-05] MEDS: albuterol 2.5 mg/3 mL Neb INHALATION (08:43)
[2024-08-05] MEDS: budesonide 0.5 mg/2 mL Neb INHALATION (08:43)
[2024-08-05 08:44] VITALS: PULSE 80; RESP 16; O2SAT 98
[2024-08-05 11:37] VITALS: O2SAT 99
[2024-08-05 13:49] VITALS: BP 111/71; PULSE 98; RESP 18; TEMP 37.1; O2SAT 99
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
[2024-08-05 17:41] LABS: Bilirubin Urine Negative (Negative); Blood Urine Negative (Negative); Glucose Urine UA Negative (Normal); Ketones Urine Negative (Negative); Leukocyte Esterase Urine 2+ (Negative); Nitrate Urine Negative (Negative); Protein Urine Negative (Negative); Specific Gravity, Urine 1.007 (1.005-1.030); Urine Appearance Clear (CLEAR); Urine Color Yellow (Yellow); Urobilinogen Urine 0.2 mg/dL (Negative)
[2024-08-05 17:44] LABS: Add Urine Microscopic? YES; Bacteria Urine 4+ /hpf; RBC Urine 0-2 /hpf (0-2); Squamous Epithelial Cell Urine 0-5 /hpf (0-5); WBC Urine 21-50 /hpf (0-5)
[2024-08-05 17:52] LABS: Amphetamines Screen Urine Positive (Negative); Barbiturates Screen Urine Negative (Negative); Benzodiazepines Screen Urine Negative (Negative); Cocaine Screen Urine Negative (Negative); Opiate Screen Urine Negative (Negative); PCP Screen Urine Negative (Negative); THC Screen Urine Negative (Negative)
[2024-08-05 17:53] LABS: Add Urine Culture? Yes
[2024-08-05 20:29] VITALS: BP 120/72; PULSE 92; RESP 17; TEMP 37.1; O2SAT 98
[2024-08-05 22:05] VITALS: BP 84/68; PULSE 112; RESP 22; O2SAT 99
--- NOTE | 2024-08-05 22:16 | ECG_ITS ---
[facility] Test Date: 2024-08-05 Pat Name: Nevaeh Mccurdy Department: Room: 128 Gender: Female [employer] Cook: : 1965 Requested By: Cole Segundo Order Number: [id number] Reading MD: CHAYA CAMACHO Measurements Intervals [place] Rate: 84 P: 17 AL: 139 QRS: 49 QRSD: 79 T: 9 QT: 342 QTc: 405 Interpretive Statements SINUS RHYTHM LOW QRS VOLTAGE IN PRECORDIAL LEADS [QRS DEFLECTION < 1.0 mV IN CHEST LEADS] No previous ECG available for comparison Electronically Signed On 08-05-2024 23:26:03 CDT by CHAYA CAMACHO [email or web address]
--- NOTE | 2024-08-05 22:17 | PC.NURSE ---
Pt. stated she is having chest pain. V/S taken BP 100/65, P 112. Pt. refused Vistaril stating it would kill her. Vistaril wasted with Sonja Scales LPN. House sup called. Order for EKG STAT.
--- NOTE | 2024-08-05 22:37 | PC.NURSE ---
Called Dr. Yadav to inform of pt. chest pain, EKG unremarkable. Dr. Albarado ordered Troponin level now, then again in 2 hrs after first Troponin draw. Orders entered in the MAY.
[2024-08-06 00:17] LABS: Troponin T (5th) Once < 6 ng/L (0-10)
[2024-08-06 02:33] LABS: Troponin T (5th) Once < 6 ng/L (0-10)
[2024-08-06 06:00] VITALS: BP 109/69; PULSE 93; RESP 17; TEMP 36.8; O2SAT 97
[2024-08-06] MEDS: thyroid 60 mg Tablet PO (08:21)
[2024-08-06] MEDS: gabapentin 300 mg Capsule PO ×3 (08:21→16:12)
[2024-08-06] MEDS: nicotine 2 mg Gum BUCCAL ×4 (08:21→17:41)
[2024-08-06] MEDS: loratadine 10 mg Tablet PO (08:21)
[2024-08-06] MEDS: ferrous sulfate EC 325 mg Tablet PO (08:21)
[2024-08-06] MEDS: fluticasone nasal spray 16gm Btl 2 SPRAY INTRANASAL (08:22)
[2024-08-06 14:00] VITALS: BP 116/78; PULSE 78; RESP 16; TEMP 37.1; O2SAT 98
--- NOTE | 2024-08-06 14:22 | P.NPUPN_ITS ---
Subjective NPU 2 Subjective: Patient presented today reporting that she is doing okay but is in denial that there are any problems. She denies any issues or any reason she should be here. She continued to seem very guarded and paranoid per staff reports and direct observation. She denied any need for medication and we talked about concerns that at mood stabilizers/antipsychotic might be helpful but she denied needing that and was focused on whether she could be discharged. She denies any side effects with current medication. Mental Status Exam 2 MSE Comments: Patient is a pleasant cooperative female who appeared her stated age with fair eye contact and normal gait. There was no evidence of any abnormal involuntary motor movements, tics, or tremors appreciated. Her speech was normal in regards to rate rhythm and prosody. She had described her mood as stressed. Her affect was somewhat irritable and mood congruent. Her thought process was linear logical and goal-directed. Her thought content revealed no suicidal or homicidal ideation. She had acknowledged making a threat to her ex fianc? as he had similarly apparently made a threat but stated that she had no intention or plan. There was considerable paranoia as she had reported feeling as if her telephone was hacked by him with some ideas of reference. She did not appear to be responding internal stimuli and denied any auditory or visual hallucinations. She was alert and oriented to person, place, time, and situation. Her insight was poor. Her judgment appeared limited. Her impulse control was guarded at this time. Her recent and remote memory appeared grossly intact. Vitals/I&O/Wt Last Vital Signs Temp 98.2 F 08/06/24 06:00 Pulse 93 08/06/24 06:00 Resp 17 08/06/24 06:00 BP 109/69 08/06/24 06:00 Pulse Ox 97 08/06/24 06:00 O2 Del Method Room Air 08/06/24 06:00 08/05/24 08/06/24 08/06/24 22:59 06:59 14:59 Intake Total 240 / 720 Balance 240 / 720 Data NPU 08/04/24 11:55 08/04/24 11:55 A&P Assessment and plan (1) MDD (major depressive disorder), recurrent severe, without psychosis: (2) RODERICK (generalized anxiety disorder): (3) PTSD (post-traumatic stress disorder): Plan 59-year-old female with complaints of paranoia admitted with homicidal ideation currently on a hold with a history of depression and anxiety currently on no medications at this time. Patient may benefit from a brief psychiatric hospitalization. #1.? Engage patient in individual milieu and group therapy. #2?? Recommend sober living treatment at the highest level of care to which the patient is willing to commit #3??? CIWA for alcohol withdrawal? #4?? TO-15 minute checks? #5?? Will attempt to gather collateral information under context of 96 hour hold. Patient may benefit from SSRI. Evaluate for psychosis as patient's paranoia appears quite prominent. PDMP PDMP Reviewed: Not Reviewed Involuntary Hold Information 2 Hold Status: Legal Status: 96 Hour Hold Date/Time Hold Expires: 08/10/24 1121 Attestations NPU 2 Medical Necessity Statement*: Inpatient hospitalization is medically necessary and deemed to ?be ?the clinically appropriate intervention ?at this time.? We will monitor/initiate medications and make changes as indicated.? The patient?s likely length of stay 4-6 days. Coding Level of Care Code Acute Code for Chg Fwd Diagnoses MDD (major depressive disorder), recurrent severe, without psychosis F33.2 RODERICK (generalized anxiety disorder) F41.1 PTSD (post-traumatic stress disorder) F43.10
[2024-08-06] MEDS: calcium carbonate 500 mg Chew Tablet 1000 MG PO ×2 (15:45→23:42)
[2024-08-06 20:46] VITALS: BP 126/70; PULSE 93; RESP 21; TEMP 36.8; O2SAT 100
[2024-08-07 06:00] VITALS: BP 111/65; PULSE 86; RESP 21; TEMP 36.7; O2SAT 96
[2024-08-07] MEDS: nicotine 2 mg Gum BUCCAL ×2 (08:24→14:52)
[2024-08-07] MEDS: thyroid 60 mg Tablet PO (08:50)
[2024-08-07] MEDS: ferrous sulfate EC 325 mg Tablet PO (08:50)
[2024-08-07] MEDS: gabapentin 300 mg Capsule PO ×2 (08:50→16:49)
[2024-08-07] MEDS: loratadine 10 mg Tablet PO (08:50)
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
[2024-08-07] MEDS: calcium carbonate 500 mg Chew Tablet 1000 MG PO ×3 (11:23→21:49)
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
[2024-08-07 14:00] VITALS: BP 113/66; PULSE 89; RESP 16; TEMP 36.8; O2SAT 99
[2024-08-07 16:52] VITALS: PULSE 76; RESP 18; O2SAT 98
[2024-08-07] MEDS: albuterol 2.5 mg/3 mL Neb INHALATION (16:56)
[2024-08-07] MEDS: ibuprofen 600 mg Tablet PO (18:31)
[2024-08-07 21:37] VITALS: BP 106/66; PULSE 85; RESP 16; TEMP 36.8; O2SAT 100
[2024-08-08 06:00] VITALS: BP 125/76; PULSE 81; RESP 16; O2SAT 100
[2024-08-08] MEDS: nicotine 21 mg Patch 1 PATCH TRANSDERMA (07:05)
[2024-08-08] MEDS: thyroid 60 mg Tablet PO (07:37)
[2024-08-08] MEDS: gabapentin 300 mg Capsule PO ×3 (07:38→17:44)
[2024-08-08] MEDS: loratadine 10 mg Tablet PO (07:38)
[2024-08-08] MEDS: ferrous sulfate EC 325 mg Tablet PO (07:38)
[2024-08-08] MEDS: ibuprofen 600 mg Tablet PO (07:40)
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
[2024-08-08] MEDS: calcium carbonate 500 mg Chew Tablet 1000 MG PO (10:57)
[2024-08-08] MEDS: fluticasone nasal spray 16gm Btl 2 SPRAY INTRANASAL (12:18)
[2024-08-08 14:00] VITALS: BP 139/65; PULSE 96; RESP 18; O2SAT 98
[2024-08-08] MEDS: acetaminophen 325 mg Tablet 650 MG PO (19:54)
[2024-08-08 22:00] VITALS: BP 115/70; PULSE 96; RESP 16; TEMP 37.4; O2SAT 98
[2024-08-09 06:00] VITALS: BP 96/71; PULSE 90; RESP 18; TEMP 36.7; O2SAT 95
[2024-08-09] MEDS: ibuprofen 600 mg Tablet PO ×2 (06:00→17:20)
[2024-08-09] MEDS: ferrous sulfate EC 325 mg Tablet PO (08:45)
[2024-08-09] MEDS: gabapentin 300 mg Capsule PO ×2 (08:45→17:17)
[2024-08-09] MEDS: thyroid 60 mg Tablet PO (08:45)
[2024-08-09] MEDS: loratadine 10 mg Tablet PO (08:45)
[2024-08-09 14:00] VITALS: BP 90/61; PULSE 88; RESP 16; TEMP 36.9; O2SAT 97
--- NOTE | 2024-08-09 15:53 | PC.NURSE ---
PT BROUGHT NICOTINE PATCH UP AT 1554
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
[2024-08-09] MEDS: nicotine 2 mg Gum BUCCAL (18:31)
[2024-08-09 19:24] VITALS: BP 98/69; PULSE 95; RESP 18; TEMP 36.4; O2SAT 98
--- NOTE | 2024-08-09 21:34 | PC.NURSE ---
patient refused her scheduled 2100 Gabapentin 300mg. states she only takes it every 12 hours and she just took it around 6pm(1800).
[2024-08-10 06:00] VITALS: BP 96/63; PULSE 80; RESP 18; O2SAT 97
[2024-08-10] MEDS: thyroid 60 mg Tablet PO (08:30)
[2024-08-10] MEDS: gabapentin 300 mg Capsule PO ×2 (08:30→17:27)
[2024-08-10] MEDS: ferrous sulfate EC 325 mg Tablet PO (08:30)
[2024-08-10] MEDS: loratadine 10 mg Tablet PO (08:30)
[2024-08-10] MEDS: nicotine 21 mg Patch 1 PATCH TRANSDERMA (08:30)
[2024-08-10 14:00] VITALS: BP 104/52; PULSE 87; RESP 16; TEMP 36.9; O2SAT 97
[2024-08-10] MEDS: ibuprofen 600 mg Tablet PO (17:31)
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
[2024-08-10 19:39] VITALS: BP 113/72; PULSE 97; RESP 18; TEMP 36.8; O2SAT 98
--- NOTE | 2024-08-10 20:13 | PC.NURSE ---
PATIENT REFUSED 2100 SCHEDULED GABAPENTIN.
[2024-08-11 06:00] VITALS: BP 92/49; PULSE 86; RESP 18; TEMP 37.3; O2SAT 98
[2024-08-11] MEDS: gabapentin 300 mg Capsule PO ×2 (08:25→18:59)
[2024-08-11] MEDS: loratadine 10 mg Tablet PO (08:26)
[2024-08-11] MEDS: thyroid 60 mg Tablet PO (08:26)
[2024-08-11] MEDS: ferrous sulfate EC 325 mg Tablet PO (08:26)
[2024-08-11] MEDS: nicotine 2 mg Gum BUCCAL ×3 (08:28→17:10)
[2024-08-11] MEDS: albuterol 2.5 mg/3 mL Neb INHALATION (13:04)
[2024-08-11 13:05] VITALS: PULSE 83; RESP 16; O2SAT 98
[2024-08-11 14:00] VITALS: BP 108/68; PULSE 94; RESP 18; TEMP 36.8; O2SAT 100
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
[2024-08-11] MEDS: ibuprofen 600 mg Tablet PO (19:16)
[2024-08-11 20:12] VITALS: BP 123/67; PULSE 99; RESP 20; TEMP 37.2; O2SAT 99
[2024-08-12 06:00] VITALS: BP 109/67; PULSE 76; RESP 16; TEMP 36.8; O2SAT 94
[2024-08-12] MEDS: thyroid 60 mg Tablet PO (07:47)
[2024-08-12] MEDS: gabapentin 300 mg Capsule PO ×2 (07:47→12:13)
[2024-08-12] MEDS: nicotine 21 mg Patch 1 PATCH TRANSDERMA (07:47)
[2024-08-12] MEDS: ferrous sulfate EC 325 mg Tablet PO (07:47)
[2024-08-12] MEDS: loratadine 10 mg Tablet PO (07:47)
--- NOTE | 2024-08-12 13:36 | W.PM.NPUDCS ---
Diagnoses at Discharge Discharge Diagnosis (1) MDD (major depressive disorder), recurrent severe, without psychosis: Status: Acute (2) RODERICK (generalized anxiety disorder): Status: Acute (3) PTSD (post-traumatic stress disorder): Status: Acute Reason for Visit Reason for Visit: SI Involuntary Hold Information Hold Status: Legal Status: 96 Hour Hold Date/Time Hold Expires: 08/10/24 1121 Discharge Data Studies Completed and Pending: Laboratory Results WBC 5.75 10^3/uL (3.2 9-11.43) 08/04/24 11:55 RBC 4.28 10^6/uL (3.8 5-5.65) 08/04/24 11:55 Hgb 13.60 g/dL (11.27 -16.99) 08/04/24 11:55 Hct 40.4 % (36-47) 08/04/24 11:55 MCV 94.4 fl (85-98) 08/04/24 11:55 MCH 31.8 pg (27-33) 08/04/24 11:55 MCHC 33.7 g/dL (30-55) 08/04/24 11:55 RDW 12.3 % (12.1-15.1 ) 08/04/24 11:55 Plt Count 244 10^3/cmm (157 -399) 08/04/24 11:55 MPV 8.9 fL (7.4-10.4) 08/04/24 11:55 Neut % (Auto) 59.4 % 08/04/24 11:55 Lymph % (Auto) 29.2 % 08/04/24 11:55 [place] % (Auto) 7.5 % 08/04/24 11:55 Eos % (Auto) 3.0 % 08/04/24 11:55 Baso % (Auto) 0.7 % 08/04/24 11:55 Neut # (Auto) 3.42 10^3/uL (1.8 -7.7) 08/04/24 11:55 Lymph # (Auto) 1.7 10^3/uL (0.8- 4.8) 08/04/24 11:55 [place] # (Auto) 0.4 10^3/uL (0.2- 0.9) 08/04/24 11:55 Eos # (Auto) 0.2 10^3/uL (0.0- 0.8) 08/04/24 11:55 Baso # (Auto) 0.0 10^3/uL (0.0- 0.1) 08/04/24 11:55 Nucleated RBC % (a uto) 0 % 08/04/24 11:55 Nucleated RBCs # 0.0 /100WBC 08/04/24 11:55 Sodium 138 mmol/L (136-1 45) 08/04/24 11:55 Potassium 4.4 mmol/L (3.5-5 .1) 08/04/24 11:55 Chloride 102 mmol/L (98-10 7) 08/04/24 11:55 Carbon Dioxide 27 mmol/L (22-29) 08/04/24 11:55 Anion Gap 13.4 (5-19) 08/04/24 11:55 BUN 12 mg/dL (8-23) 08/04/24 11:55 Creatinine 0.8 mg/dL (0.5-0. 9) 08/04/24 11:55 GFR Calculation 73.2 mL/min (90-1 30) L 08/04/24 11:55 Glucose 93 mg/dL (65-115) 08/04/24 11:55 Calculated Osmolal ity 285 mOsm/kg (285- 295) 08/04/24 11:55 Calcium 9.3 mg/dL (8.5-10 .5) 08/04/24 11:55 Total Bilirubin 0.2 mg/dL (0.15-1 .2) 08/04/24 11:55 AST 15 U/L (0-32) 08/04/24 11:55 ALT 8 U/L (0-33) 08/04/24 11:55 Alkaline Phosphata se 97 U/L (35-105) 08/04/24 11:55 Troponin T 5th Gen ng/L < 6 ng/L (0-10) 08/06/24 02:03 Total Protein 7.0 g/dL (6.6-8.7 ) 08/04/24 11:55 Albumin 4.1 g/dL (3.5-5.2 ) 08/04/24 11:55 Globulin 2.9 g/dL (1.3-4.6 ) 08/04/24 11:55 TSH 1.61 uIU/mL (0.27 -4.20) 08/04/24 11:55 Urine Color Yellow (Yellow) 08/04/24 17:00 Urine Appearance Clear (CLEAR) 08/04/24 17:00 Urine pH 8.0 (5-7) A 08/04/24 17:00 Ur Specific Gravit y 1.007 (1.005-1.0 30) 08/04/24 17:00 Urine Protein Negative (Negati ve) 08/04/24 17:00 Urine Glucose (UA) Negative (Normal ) 08/04/24 17:00 Urine Ketones Negative (Negati ve) 08/04/24 17:00 Urine Blood Negative (Negati ve) 08/04/24 17:00 Urine Nitrate Negative (Negati ve) 08/04/24 17:00 Urine Bilirubin Negative (Negati ve) 08/04/24 17:00 Urine Urobilinogen 0.2 mg/dL (Negati ve) 08/04/24 17:00 Ur Leukocyte Siomara ase 2+ (Negative) A 08/04/24 17:00 Urine RBC 0-2 /hpf (0-2) 08/04/24 17:00 Urine WBC 21-50 /hpf (0-5) H 08/04/24 17:00 Ur Squamous Epith Cells 0-5 /hpf (0-5) 08/04/24 17:00 Amorphous Sediment Not Reportable 08/04/24 17:00 Urine Bacteria 4+ /hpf (NONE) H 08/04/24 17:00 Hyaline Casts 0.40 /lpf 08/04/24 17:00 Salicylates < 0.3 mg/dL (3-10 ) L 08/04/24 11:55 Urine Opiates Scre en Negative ng/mL (N egative) 08/04/24 17:00 Acetaminophen < 5.0 ug/mL (10-3 0) L 08/04/24 11:55 Ur Barbiturates Sc reen Negative ng/mL (N egative) 08/04/24 17:00 Ur Phencyclidine S crn Negative ng/mL (N egative) 08/04/24 17:00 Ur Amphetamines Sc reen Positive ng/mL (N egative) H 08/04/24 17:00 U Benzodiazepines Scrn Negative ng/mL (N egative) 08/04/24 17:00 Urine Cocaine Scre en Negative ng/mL (N egative) 08/04/24 17:00 U Marijuana (THC) Screen Negative ng/mL (N egative) 08/04/24 17:00 Ethyl Alcohol < 10 mg/dL (0-10) 08/04/24 11:55 Vitals: Last Vital Signs Temp 98.3 F 08/12/24 06:00 Pulse 76 08/12/24 06:00 Resp 16 08/12/24 06:00 BP 109/67 08/12/24 06:00 Pulse Ox 94 08/12/24 06:00 O2 Del Method Room Air 08/12/24 06:00 Discharge Plan Discharge Patient Disposition: Home Condition: Stable Prescriptions: Continued loratadine 10 mg tablet 10 mg PO DAILY fluticasone propionate 50 mcg/actuation spray,suspension 2 spray intranasal DAILY PRN (Reason: nasal congestion) 180 Days Qty: 16 5RF Rx Instructions: administer into each nostril rizatriptan 10 mg tablet See Rx Instructions .ROUTE .COMPLEX Rx Instructions: Take 1 tablet by mouth at onset of migraine. May repeat in 20 minutes if no relief. Max of 30mg in 24 hours. gabapentin 300 mg capsule 300 mg PO QID albuterol sulfate [Ventolin HFA] 90 mcg/actuation HFA aerosol inhaler 2 puff INHALATION Q6H PRN (Reason: Shortness Of Breath) ferrous sulfate [FeroSul] 325 mg (65 mg iron) tablet 325 mg PO DAILY thyroid (pork) [STRAP MACHINE OPERATOR Thyroid] 60 mg tablet 60 mg PO DAILY 30 Days Qty: 30 1RF Discontinued fluticasone propion-salmeterol [Advair Diskus] 100-50 mcg/dose blister with device 1 inh INHALATION BID Discharge Orders: Discharge Order (Routine); Ordered 08/12/24 Ordered By: Gurpreet Albarado Referrals: [facility] [Outside, Counselor - Professional] - 08/18/24 11:45 am Referral Note: Hospital follow-up with [facility]. Discharge Diet: Regular Discharge Activity: Resume usual activity Patient Instructions: Opioid Safety Discharge Attestations NPU Time Spent in Discharge Care*: less than 30 min Specific Discharge Activities: Specific discharge activities: educating patient, discussing with pillowcase sewer/social workers/dc planners, documenting/other paperwork and evaluating patient/reviewing data Coding Level of Care Code Acute Code for Chg Fwd Diagnoses MDD (major depressive disorder), recurrent severe, without psychosis F33.2 RODERICK (generalized anxiety disorder) F41.1 PTSD (post-traumatic stress disorder) F43.10
[2024-08-12 13:39] VITALS: BP 109/67; PULSE 76; RESP 16; TEMP 36.8; O2SAT 94
== END 2024-08-12 15:15 | disposition home or self-care (01) | DRG 885 ==
LOC: ER 14:01 → NP 14:59
PROVIDERS: Psychiatry & Neurology Psychiatry; Admitting Provider Psychiatry & Neurology Psychiatry; Emergency Provider Emergency Medicine; Visit Provider Psychiatry & Neurology Psychiatry
DX: F33.2 Major depressive disorder, recurrent severe without psychotic features (principal); F41.1 Generalized anxiety disorder; F43.10 Post-traumatic stress disorder, unspecified; R45.850 Homicidal ideations; F17.210 Nicotine dependence, cigarettes, uncomplicated; E03.9 Hypothyroidism, unspecified; E61.1 Iron deficiency; Z62.812 Personal history of neglect in childhood; Z87.828 Personal history of other (healed) physical injury and trauma
CPT/HCPCS: 36415; 80053; 80306; 80307; 81001; 84443; 84484; 85025; 87077; 87086; 87186; 93005; 94640; 97150; 97165; 99285; J7613; J7626; J9999